=== PATIENT | male | born 1940 | race Hispanic/Latino ===

== ENCOUNTER → 2021-04-07 | Outpatient (CLI) | payer MEDICARE ==
[2021-04-07 10:16] LABS: BILIRUBIN,DIRECT 0.3 mg/dL (0.0-0.3); CREATININE 1.3 mg/dL (0.5-1.5); POTASSIUM 4.9 mmol/L (3.5-5.1); TOTAL PROTEIN, SERUM 7.4 g/dL (6.0-8.3)
== END | disposition home or self-care (01) ==
LOC: LAB 09:28
PROVIDERS: ATTEND Internal Medicine
DX: I10 Essential (primary) hypertension (principal)
CPT/HCPCS: 36415; 80053; 80076

== ENCOUNTER → 2021-06-23 | Outpatient (CLI) | payer MEDICARE, OTHER | END | disposition home or self-care (01) | LOC: SHCH 08:08 | PROVIDERS: ATTEND Internal Medicine | DX: I50.9 Heart failure, unspecified (principal); I34.0 Nonrheumatic mitral (valve) insufficiency; I51.7 Cardiomegaly; I25.10 Atherosclerotic heart disease of native coronary artery without angina pectoris; I25.5 Ischemic cardiomyopathy; E11.22 Type 2 diabetes mellitus with diabetic chronic kidney disease; N18.30 Chronic kidney disease, stage 3 unspecified; Z95.1 Presence of aortocoronary bypass graft | CPT/HCPCS: 93306 ==

== ENCOUNTER 2021-08-18 09:33 | Day surgery (SDC) | payer OTHER ==
[2021-08-13 14:04] LABS: BASOPHILS % (AUTO) 0.8 % (0.0-5.0); EOSINOPHILS % (AUTO) 2.2 % (0.0-8.0); LYMPHOCYTES % (AUTO) 21.5 % (21.0-51.0); MEAN CORPUSCULAR HEMOGLOBIN 31.3 pg (27.0-33.0); MEAN CORPUSCULAR HGB CONC 33.2 g/dL (32.0-36.0); MEAN CORPUSCULAR VOLUME 94.3 fL (79-99); MONOCYTES % (AUTO) 9.4 % (3.0-13.0); NEUTROPHILS % (AUTO) 64.4 % (40.0-77.0); PLATELET COUNT (AUTO) 228 K/uL (130-400); RED BLOOD CELL COUNT(AUTO) 2.97 MIL/uL (4.50-6.20); RED CELL DISTRIBUTION WIDTH 15.1 % (11.0-15.5); WHITE BLOOD COUNT (AUTO) 8.3 K/uL (4.8-10.8)
[2021-08-13 14:14] LABS: CREATININE 1.3 mg/dL (0.5-1.5); POTASSIUM 5.2 mmol/L (3.5-5.1)
[2021-08-13 14:17] LABS: PROTHROMBIN TIME 10.9 SEC (9.6-11.6)
[2021-08-13 14:18] LABS: PARTIAL THROMBOPLASTIN TIME 24.4 SEC (26.3-35.5)
[2021-08-18] VITALS (9 sets, daily range): BP systolic 102–122; BP diastolic 64–80
[~2021-08-18] VITALS: Ht 137.2 cm; Wt 66.0 kg
[~2021-08-18 09:33] MED LIST: ATOR40TA71 PO; CEFAZOLIN SODIUM 1 GM VIAL IVP ONE; CLOP75TA32 PO; EZET10TA48 PO; FURO20TA4 PO; GLIP10TA9 PO; Iron PO; LEVO75CA5 PO; METO-408 PO; SITA1TAB6 PO; SPIR25TA6 PO
[2021-08-18] MEDS ORDERED: 0.9%NACL 1000ML 1,000 ML IV ONE (13:39)
[2021-08-18] MEDS ORDERED: CEFAZOLIN SODIUM 1 GM VIAL ONE (14:32)
[2021-08-18] MEDS ORDERED: IOHEXOL-350 50ML VIAL IV ONE (14:32)
[2021-08-18] MEDS ORDERED: BUPIVACAINE/PF 0.25% 30ML VIAL IJ ONE (14:32)
[2021-08-18] MEDS ORDERED: LIDOCAINE HCL 1% MDV 50ML VIAL ONE (14:33)
[2021-08-18] MEDS ORDERED: MIDAZOLAM HCL 1 MG/ML 2ML VIAL ONE (14:33)
[2021-08-18] MEDS ORDERED: MEPERIDINE-PF 25 MG/ML SYG ONE (14:33)
[2021-08-18] MEDS ORDERED: TRAM50TA4 PO (16:51)
[2021-08-18] MEDS ORDERED: ACETAMINOPHEN WITH CODEINE 1 TAB TAB PO PRN (17:00)
== END 2021-08-18 19:30 | disposition home or self-care (01) ==
LOC: DAH 09:33
PROVIDERS: ATTEND Internal Medicine Cardiovascular Disease
DX: I25.5 Ischemic cardiomyopathy (principal); I11.0 Hypertensive heart disease with heart failure; I50.42 Chronic combined systolic (congestive) and diastolic (congestive) heart failure; E78.5 Hyperlipidemia, unspecified; E11.9 Type 2 diabetes mellitus without complications; I25.10 Atherosclerotic heart disease of native coronary artery without angina pectoris; Z79.01 Long term (current) use of anticoagulants; Z79.899 Other long term (current) drug therapy; Z98.890 Other specified postprocedural states; Z95.1 Presence of aortocoronary bypass graft; Z87.891 Personal history of nicotine dependence; Z79.890 Hormone replacement therapy
CPT/HCPCS: 33249; 36415; 71045; 80048; 82948 ×2; 85025; 85610; 85730; 93005; A4215; A4216; A4221; A4222; A4223 ×3; A4606; A4663; C1721; C1895; C1896; J0690; J2175; J2250; J3490 ×2; J7030; Q9967; 99156; 99157

== ENCOUNTER 2021-08-20 11:26 | Observation (INO) | payer OTHER ==
[~2021-08-20] VITALS: Ht 152.4 cm; Wt 65.3 kg
[~2021-08-20 11:26] MED LIST changes: -CEFAZOLIN SODIUM 1 GM VIAL IVP ONE; +TRAM50TA4 PO
[2021-08-20 11:54] LABS: BASOPHILS % (AUTO) 0.6 % (0.0-5.0); EOSINOPHILS % (AUTO) 3.5 % (0.0-8.0); HEMATOCRIT 27.8 % (42-54); LYMPHOCYTES % (AUTO) 19.3 % (21.0-51.0); MEAN CORPUSCULAR HEMOGLOBIN 31.2 pg (27.0-33.0); MEAN CORPUSCULAR HGB CONC 33.5 g/dL (32.0-36.0); MEAN CORPUSCULAR VOLUME 93.3 fL (79-99); MONOCYTES % (AUTO) 9.9 % (3.0-13.0); NEUTROPHILS % (AUTO) 65.4 % (40.0-77.0); PLATELET COUNT (AUTO) 179 K/uL (130-400); RED BLOOD CELL COUNT(AUTO) 2.98 MIL/uL (4.50-6.20); RED CELL DISTRIBUTION WIDTH 14.9 % (11.0-15.5); WHITE BLOOD COUNT (AUTO) 8.2 K/uL (4.8-10.8)
[2021-08-20 12:07] LABS: APPEARANCE,URINE Clear (CLEAR); BILIRUBIN,URINE Negative (NEGATIVE); COLOR,URINE Yellow (YELLOW); GLUCOSE, URINE (UA) 500 mg/dL (NEGATIVE); KETONES,URINE Negative (NEGATIVE); LEUKOCYTE ESTERASE ,URINE Negative (NEGATIVE); NITRATE,URINE Negative (NEGATIVE); OCCULT BLOOD,URINE Negative (NEGATIVE); PH,URINE 5.5 (5.0-8.0); PROTEIN,URINE Negative (NEGATIVE); UROBILINOGEN,URINE 0.2 mg/dL (0.2-1.0)
[2021-08-20 12:14] LABS: B-TYPE NATRIURETIC PEPTIDE 299 pg/mL (0-100)
[2021-08-20 12:18] LABS: ALBUMIN 3.7 g/dL (3.5-5.0); BILIRUBIN,TOTAL 0.4 mg/dL (0.2-1.0); CREATININE 1.4 mg/dL (0.5-1.5); MAGNESIUM 1.4 mg/dL (1.80-2.40); POTASSIUM 4.1 mmol/L (3.5-5.1); TOTAL PROTEIN, SERUM 7.5 g/dL (6.0-8.3)
[2021-08-20 12:19] LABS: BACTERIA,URINE None Seen /HPF (None Seen); HYALINE CASTS, URINE 0-1 /LPF (0-1 /LPF); MUCUS,URINE Rare LPF (None Seen); RBC,URINE None Seen /HPF (0-1); SQUAMOUS EPITHELIAL CELL,UR 0-2 /HPF (0-2); WBC,URINE 0-1 /HPF (0-1)
[2021-08-20 12:21] LABS: INR 1.02 (0.85-1.15); PROTHROMBIN TIME 11.1 SEC (9.6-11.6)
[2021-08-20 12:23] LABS: PARTIAL THROMBOPLASTIN TIME 26.2 SEC (26.3-35.5)
[2021-08-20] MEDS ORDERED: IOHEXOL-350 75 ML VIAL IV ONE (13:52)
[2021-08-20 16:36] VITALS: BP 116/68
[2021-08-20] MEDS ORDERED: MAGNESIUM OXIDE 400 MG TABLET PO SCH (17:30)
== END 2021-08-20 18:58 | disposition home or self-care (01) ==
LOC: EDH 11:26 → EDHIP 16:00
PROVIDERS: ADMIT Internal Medicine; ATTEND Internal Medicine
DX: R55 Syncope and collapse (principal); I25.10 Atherosclerotic heart disease of native coronary artery without angina pectoris; E11.9 Type 2 diabetes mellitus without complications; R07.89 Other chest pain; I25.2 Old myocardial infarction; I50.22 Chronic systolic (congestive) heart failure; Z86.711 Personal history of pulmonary embolism; Z95.810 Presence of automatic (implantable) cardiac defibrillator; Z79.899 Other long term (current) drug therapy
CPT/HCPCS: 36415; 71045; 71275; 80053; 80061; 81001; 82550; 83735; 83874; 83880; 84484; 85025; 85378; 85610; 85730; 93005 ×2; 93306; 99291; G0378 ×3; Q9967

== ENCOUNTER 2022-07-15 14:47 | Observation (INO) | payer OTHER ==
[~2022-07-15] VITALS: Ht 165.1 cm; Wt 64.9 kg
[2022-07-15 15:32] LABS: EOSINOPHILS % (AUTO) 3.5 % (0.0-8.0); HEMATOCRIT 30.7 % (42-54); LYMPHOCYTES % (AUTO) 22.6 % (21.0-51.0); MEAN CORPUSCULAR HEMOGLOBIN 29.8 pg (27.0-33.0); MEAN CORPUSCULAR HGB CONC 33.6 g/dL (32.0-36.0); MEAN CORPUSCULAR VOLUME 88.7 fL (79-99); MONOCYTES % (AUTO) 11.6 % (3.0-13.0); NEUTROPHILS % (AUTO) 59.9 % (40.0-77.0); PLATELET COUNT (AUTO) 171 K/uL (130-400); RED BLOOD CELL COUNT(AUTO) 3.46 MIL/uL (4.50-6.20); RED CELL DISTRIBUTION WIDTH 14.3 % (11.0-15.5); WHITE BLOOD COUNT (AUTO) 8.7 K/uL (4.8-10.8)
[2022-07-15 15:46] LABS: CREATININE 1.4 mg/dL (0.5-1.5); POTASSIUM 4.4 mmol/L (3.5-5.1)
[2022-07-15 15:54] LABS: ALBUMIN 4.1 g/dL (3.5-5.0); TOTAL PROTEIN, SERUM 7.2 g/dL (6.0-8.3)
[2022-07-15] MEDS ORDERED: ASPIRIN 325MG TAB PO ONE (17:30)
[2022-07-15] MEDS ORDERED: METF-446 PO (17:56)
[2022-07-15] MEDS ORDERED: GABA-529 PO (17:56)
[2022-07-15] MEDS ORDERED: TRAMADOL HCL 50 MG TABLET PO PRN (19:00)
[2022-07-15] MEDS: GLIPIZIDE 5 MG TABLET PO SCH (20:45)
[2022-07-15] MEDS ORDERED: ATORVASTATIN 40 MG TABLET PO SCH (21:00)
[2022-07-16] VITALS: BP 144/91
[2022-07-16 04:00] VITALS: BP 125/80
[2022-07-16] MEDS ORDERED: LEVOTHYROXINE 75 MCG TABLET PO SCH (06:30)
[2022-07-16 07:30] VITALS: BP 119/70
[2022-07-16] MEDS ORDERED: METFORMIN HCL 500 MG TABLET PO SCH (08:00)
[2022-07-16] MEDS ORDERED: CLOPIDOGREL 75MG TAB PO SCH (09:00)
[2022-07-16] MEDS ORDERED: ENOXAPARIN SODIUM 30 MG/0.3 ML SQ SCH (09:00)
[2022-07-16] MEDS ORDERED: GABAPENTIN 100 MG CAPSULE PO SCH (09:00)
[2022-07-16] MEDS ORDERED: METOPROLOL SUCCINATE 25 MG TAB.SR.24H PO SCH (09:00)
[2022-07-16] MEDS ORDERED: EZETIMIBE 10 MG TAB PO SCH (09:00)
[2022-07-16] MEDS ORDERED: SPIRONOLACTONE 25 MG TAB PO SCH (09:00)
[2022-07-16] MEDS ORDERED: ASPIRIN 81MG CHEW TAB PO SCH (09:00)
[2022-07-16] MEDS: GLIPIZIDE 5 MG TABLET PO SCH (09:00)
[2022-07-16] MEDS ORDERED: FUROSEMIDE 20 MG TABLET PO SCH (09:00)
[2022-07-16 11:30] VITALS: BP 123/67
== END 2022-07-16 15:42 | disposition home or self-care (01) ==
LOC: EDH 14:47 → EDHIP 17:30 → 4BH 23:18
PROVIDERS: ADMIT Family Medicine; ATTEND Family Medicine
DX: R07.89 Other chest pain (principal); Z20.822 Contact with and (suspected) exposure to COVID-19; R06.02 Shortness of breath; I12.9 Hypertensive chronic kidney disease with stage 1 through stage 4 chronic kidney disease, or unspecified chronic kidney disease; E11.22 Type 2 diabetes mellitus with diabetic chronic kidney disease; N18.9 Chronic kidney disease, unspecified; E78.5 Hyperlipidemia, unspecified; E03.9 Hypothyroidism, unspecified; I25.10 Atherosclerotic heart disease of native coronary artery without angina pectoris; I25.5 Ischemic cardiomyopathy; I44.0 Atrioventricular block, first degree; Z79.899 Other long term (current) drug therapy; Z95.1 Presence of aortocoronary bypass graft; Z95.5 Presence of coronary angioplasty implant and graft; Z95.810 Presence of automatic (implantable) cardiac defibrillator
CPT/HCPCS: 99285; 82550 ×3; 83874 ×3; 84484 ×4; 80053; 83880; 85025; 87804 ×2; 82948; 36415 ×2; 87635; 71045; 93005; 96372; 93306; 93356; G0378 ×21; C9803; J1650

== ENCOUNTER → 2023-08-07 | Outpatient (CLI) | payer OTHER ==
[~2023-08-07] MED LIST changes: +GABA-529 PO; -Iron PO; +METF-446 PO; -SITA1TAB6 PO
[2023-08-07 12:38] LABS: ALBUMIN 3.7 g/dL (3.5-5.0); BILIRUBIN,TOTAL 0.3 mg/dL (0.2-1.0); CREATININE 1.4 mg/dL (0.5-1.3); MAGNESIUM 1.3 mg/dL (1.80-2.40); POTASSIUM 4.7 mmol/L (3.5-5.1); TOTAL PROTEIN, SERUM 7.2 g/dL (6.0-8.3)
== END | disposition home or self-care (01) ==
LOC: LAB 10:03
PROVIDERS: ATTEND Internal Medicine Cardiovascular Disease
DX: I25.5 Ischemic cardiomyopathy (principal); I47.20 Ventricular tachycardia, unspecified
CPT/HCPCS: 36415; 80053; 83735

== ENCOUNTER → 2023-08-24 | Outpatient (CLI) | payer OTHER ==
[2023-08-24 16:52] LABS: ALBUMIN 3.9 g/dL (3.5-5.0); BILIRUBIN,TOTAL 0.3 mg/dL (0.2-1.0); CREATININE 1.8 mg/dL (0.5-1.3); MAGNESIUM 1.9 mg/dL (1.80-2.40); TOTAL PROTEIN, SERUM 7.1 g/dL (6.0-8.3)
== END | disposition home or self-care (01) ==
LOC: LAB 14:16
PROVIDERS: ATTEND Internal Medicine Cardiovascular Disease
DX: I25.5 Ischemic cardiomyopathy (principal); I47.20 Ventricular tachycardia, unspecified
CPT/HCPCS: 36415; 80053; 83735

== ENCOUNTER → 2023-10-12 | Outpatient (CLI) | payer OTHER ==
[2023-10-12 16:35] LABS: CREATININE 1.5 mg/dL (0.5-1.3); MAGNESIUM 1.5 mg/dL (1.80-2.40); POTASSIUM 4.7 mmol/L (3.5-5.1)
== END | disposition home or self-care (01) ==
LOC: LAB 13:15
PROVIDERS: ATTEND Internal Medicine Cardiovascular Disease
DX: I50.22 Chronic systolic (congestive) heart failure (principal)
CPT/HCPCS: 36415; 80048; 83735

== ENCOUNTER → 2024-01-30 | Outpatient (CLI) | payer OTHER ==
[~2024-01-30] MED LIST changes: +GLIP10TA16 PO; -GLIP10TA9 PO
== END | disposition home or self-care (01) ==
LOC: SHCH 09:52
PROVIDERS: ATTEND Internal Medicine Cardiovascular Disease
DX: I25.10 Atherosclerotic heart disease of native coronary artery without angina pectoris (principal); R01.1 Cardiac murmur, unspecified
CPT/HCPCS: 93306

== ENCOUNTER → 2024-05-17 | Outpatient (CLI) | payer OTHER ==
--- NOTE | 2024-05-17 16:03 | HMCIMG ---
MR SPINAL CANAL, LUMBAR WO CON HISTORY: Pain COMPARISON: None TECHNIQUE: MRI of the lumbar spine was performed utilizing multiple pulse sequences in axial , coronal and sagittal plane. Patient was not given contrast through intravenous route. FINDINGS: No abnormal signal intensity is seen of the visualized bony structure. No loss of vertebral height is seen. There is straightening of normal lumbar curvature which may be related to muscle spasm or positioning. Degenerative disc signals are present at L4-5 and L5-S1 levels. Visualized distal conus is unremarkable. At the L2-3 level, there is spondylotic disc with annular disc bulge and bilateral ligamentum flavum hypertrophy causing anterior thecal sac compression with bilateral lateral recess stenosis and bilateral neural foraminal stenosis. The thecal sac measures approximately 5 mm in its anterior posterior dimension. At the L3-4 level, there is spondylotic disc with annular disc bulge and bilateral ligamentum flavum hypertrophy causing anterior thecal sac compression with bilateral lateral recess stenosis and bilateral neural foraminal stenosis. The thecal sac measures approximately 4.62 mm in its anterior posterior dimension. At the L4-5 level, there is spondylotic disc with annular disc bulge and bilateral ligamentum flavum hypertrophy causing anterior thecal sac compression with bilateral lateral recess stenosis and bilateral neural foraminal stenosis. The thecal sac measures approximately 3.9 mm in its anterior posterior dimension. 3.9 mm in its anterior posterior dimension. At the L5-S1 level, there is spondylotic disc with central disc protrusion/herniation causing anterior thecal sac compression with bilateral lateral recess stenosis and bilateral neural foraminal stenosis. The thecal sac measures approximately 7 mm in its anterior posterior dimension. IMPRESSION: 1. 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
== END | disposition home or self-care (01) ==
LOC: RAH 13:24
PROVIDERS: ATTEND Internal Medicine
DX: M47.816 Spondylosis without myelopathy or radiculopathy, lumbar region (principal); M51.369 Other intervertebral disc degeneration, lumbar region without mention of lumbar back pain or lower extremity pain; M48.061 Spinal stenosis, lumbar region without neurogenic claudication; M43.8X6 Other specified deforming dorsopathies, lumbar region; M47.817 Spondylosis without myelopathy or radiculopathy, lumbosacral region
CPT/HCPCS: 72148

== ENCOUNTER → 2024-09-18 | Outpatient (CLI) | payer OTHER ==
[~2024-09-18] MED LIST changes: -LEVO75CA5 PO; +LEVO75CA6 PO
--- NOTE | 2024-09-18 15:34 | HMCIMG ---
CT HEAD/BRAIN W/O CONTRAST HISTORY: Repeat of false COMPARISON: None TECHNIQUE: Multiple sequential axial images of the head were obtained from the base of the skull through vertex. Patient was not given contrast through intravenous route. FINDINGS: The ventricles and extraventricular CSF spaces are dilated consistent with cerebral atrophy. Nonspecific white matter changes seen. There is no midline shift, mass effect or herniation. No acute intracranial bleed is seen. Visualized portion of the paranasal sinuses are grossly within normal limits. IMPRESSION: 1. No acute intracranial bleed is seen. 2. Atrophy with white matter changes. CT was performed with one or more following dose reduction techniques: automated exposure control, adjustment of the mA and kv according to patient's size, or use of a iterative reconstruction technique.
== END ==
LOC: RAH 13:33
PROVIDERS: ATTEND Neurological Surgery
DX: M62.81 Muscle weakness (generalized) (principal); R26.89 Other abnormalities of gait and mobility; R29.6 Repeated falls; G99.2 Myelopathy in diseases classified elsewhere
CPT/HCPCS: 70450

== ENCOUNTER 2025-03-29 11:47 | Inpatient (IN) | payer OTHER ==
[~2025-03-29] VITALS: Ht 165.1 cm; Wt 68.8 kg
--- NOTE | 2025-03-29 12:03 | NUR ---
PT JUST NOW BEING PLACED IN MY ED BED 11
--- NOTE | 2025-03-29 12:09 | EKG ---
[facility] Test Date: 2025-03-29 Test Time: 12:00:34 Pat Name: FLAVIA PIERRE Department: ED Room: 309 Gender: M [employer]: [id number] : 1940 Requested By: REGINALDO HADDAD Order Number: [id number] Reading MD: Diamond Romano Measurements Intervals [place] Rate: 61 P: -13 ID: [id number] QRS: 29 QRSD: 93 T: 93 QT: 410 QTc: 413 Interpretive Statements Atrial-paced complexes Consider anterior infarct Compared to ECG 07/15/2022 14:45:41 Sinus rhythm no longer present ST (T wave) deviation no longer present Myocardial infarct finding still present Electronically Signed On 04-01-2025 19:55:27 MEDICAL TECHNOLOGIST by Diamond Romano Please click the below link to view image of tracing.
[2025-03-29] MEDS: 0.9%NACL 1000ML 1,000 ML IV ONE (12:36)
[2025-03-29 12:41] LABS: IMMATURE GRANULOCYTE ABSOLUTE 0.22 K/uL (0-1); NUCLEATED RED BLOOD CELLS 0.0 % (0.0-0.19); PLATELET COUNT (AUTO) 178 K/uL (130-400); RED BLOOD CELL COUNT(AUTO) 3.15 MIL/uL (4.50-6.20); RED CELL DISTRIBUTION WIDTH 15.4 % (11.0-15.5); WHITE BLOOD COUNT (AUTO) 9.8 K/uL (4.8-10.8)
[2025-03-29 12:51] LABS: CREATININE 2.1 mg/dL (0.5-1.3); GLOMERULAR FILTR. RATE CALC 31.0 mL/min (>90); GLUCOSE,RANDOM 299.0 mg/dL (70-105); SODIUM SERUM 134.0 mmol/L (136-145); UREA NITROGEN, BLOOD 26.0 mg/dL (7-18)
--- NOTE | 2025-03-29 13:18 | HMCIMG ---
EXAM: CR Chest, 1 View. CLINICAL HISTORY: vertigo COMPARISON: None provided. FINDINGS: LUNGS: Ill-defined density within the right lower lung may reflect an infectious and/inflammatory process; however, consider CT imaging for further evaluation. PLEURAL SPACES: No pleural effusion or pneumothorax. MEDIASTINUM: The cardiomediastinal silhouette is within normal limits. AICD leads are in satisfactory positions. BONES: No acute osseous abnormality. IMPRESSION: 1. Ill-defined density in the right lower lung, possibly representing an infectious or inflammatory process. Consider CT imaging for further evaluation. 2. AICD leads in satisfactory positions. /[place]
--- NOTE | 2025-03-29 13:34 | ERN ---
General Chief Complaint: Dizzy/Light Headed Stated Complaint: DIZZINESS Time Seen by MD: 11:56 Source: patient History of Present Illness Initial Comments PATIENT IS A AN 84-YEAR-OLD GENTLEMAN COMING IN WEAKNESS, LONG WITH THE WEAKNESS PATIENT HAS BEEN PRESENTING WITH A MILD DIZZINESS. Allergies: Coded Allergies: No Known Allergies (Verified Allergy, Unknown, 07/30/21) Home Meds Active Scripts Tramadol Hcl (Tramadol HCl) 50 Mg Tablet, 50 MG PO Q6HPRN PRN for pain, #30 TAB 0 Refills Prov:JOE COPELAND MD 08/18/21 Reported Medications Metformin HCl (Metformin HCl) 1,000 Mg Tablet, 1000 MG PO DAILYBKFST, TAB 07/15/22 Gabapentin (Gabapentin) 100 Mg Capsule, 100 MG PO DAILY, CAP 07/15/22 Levothyroxine Sodium (Levothyroxine) 75 Mcg Capsule, 75 MCG PO DAILY, CAP 08/03/21 Atorvastatin Calcium (Atorvastatin Calcium) 40 Mg Tablet, 40 MG PO HS, TAB 08/03/21 Glipizide (Glipizide) 10 Mg Tablet, 10 MG PO BID, TAB 08/03/21 Ezetimibe (Ezetimibe) 10 Mg Tablet, 10 MG PO DAILY, TAB 08/03/21 Spironolactone (Spironolactone) 25 Mg Tablet, 25 MG PO DAILY, TAB 08/03/21 Clopidogrel Bisulfate (Clopidogrel) 75 Mg Tablet, 75 MG PO DAILY, TAB 08/03/21 Furosemide (Furosemide) 20 Mg Tablet, 20 MG PO DAILY, TAB 08/03/21 Metoprolol Succinate (Metoprolol Succinate) 25 Mg Tab.er.24h, 25 MG PO DAILY, TAB 08/03/21 Past Medical History Past Medical History: CAD, Diabetes-Type II, High Cholesterol, Heart Disease, Hypertension, Other Medical History Other: THYROID Past Surgical History: Cholecystectomy, CABG, Pacer/AICD Surgical History Other: PROSTATE Social History Social History: Negative ROS Dictation CONSTITUTIONAL: NO CHILLS, NO FEVER, WEAKNESS, NO DIAPHORESIS, NO MALAISE. HEAD/FACE: NO SIGNS OF TRAUMA. EENT: NO EYE PAIN, NO BLURRED VISION, NO TEARING, NO DOUBLE VISION, NO EAR PAIN, NO EAR DISCHARGE, NO NOSE PAIN, NO NASAL CONGESTION, NO THROAT PAIN, NO THROAT SWELLING, NO MOUTH PAIN. RESPIRATORY: NO COUGH, NO ORTHOPNEA, NO SOB, NO STRIDOR, NO WHEEZING. CARDIOVASCULAR: NO CHEST PAIN, NO EDEMA, NO PALPITATIONS, NO SYNCOPE. GASTROINTESTINAL/ABDOMINAL: NO ABDOMINAL PAIN, NO CONSTIPATION, NO DIARRHEA, NO NAUSEA, NO VOMITING. GENITOURINARY: NO ABNORMAL DISCHARGE, NO DYSURIA, NO FREQUENT URINATION, NO HEMATURIA. NO COMPLAINTS OF PAIN IN THE GENITALS. MUSCULOSKELETAL: NO BACK PAIN, NO GOUT, NO JOINT PAIN, NO JOINT SWELLING, NO MUSCLE PAIN, NO MUSCLE STIFFNESS, NO NECK PAIN. INTEGUMENTARY: NO CHANGE IN COLOR, NO CHANGE IN HAIR/NAILS, NO DRYNESS, NO LESION, NO LUMPS, NO RASH. NEUROLOGICAL/PSYCH: NO ANXIETY, NOT DEPRESSED, NO EMOTIONAL PROBLEM, NO HEADACHE, NO NUMBNESS, NO PRE-EXISTING DEFICIT, NO HISTORY OF SEIZURES, NO TREMORS, NO WEAKNESS. HEMATOLOGIC/LYMPHATIC: NOT ANEMIC, NO HISTORY OF BLOOD CLOTS, NO APPARENT BLEEDING, NO BRUISING, GLANDS NOT SWOLLEN. ALL SYSTEMS NEGATIVE, EXCEPT NOTED. Physical Exam Physical Exam Dictation VITAL SIGNS: REVIEWED. GENERAL APPEARANCE: ALERT, ORIENTED X3, NO ACUTE DISTRESS, OBESE. HEAD AND FACE: NON-TRAUMATIC. EYES: PERRL, PINK CONJUNCTIVAS, EYELID NO TRAUMA, ANTERIOR CHAMBER CLEAR. EARS: PINNAS INTACT AND NO SIGNS OF TRAUMA OR ERYTHEMA. EAR CANALS CERUMEN IMPACTION. TMS NO ERYTHEMA. NOSE: NO DISCHARGE, NO BLEEDING. OROPHARYNX: MOUTH NORMAL, TEETH NO CARIES, TONGUE PINK. PHARYNX CLEAR, NO ERYTHEMA. TONSILS NO EXUDATES, NO ABSCESSES NOTED. MUCOUS MEMBRANE MOIST. NECK: SUPPLE, NON-TENDER, NO THYROMEGALY, NO MASSES, NO JVD, NO BRUITS. BREAST: DEFERRED. CHEST: NO TENDERNESS, NO CREPITUS, NO PARADOXICAL MOVEMENT, NO RETRACTIONS. LUNGS: CLEAR, WELL-VENTILATED, SYMMETRIC, NO RALES, NO WHEEZING, NO RHONCHI, NO STRIDOR, GOOD BREATH SOUNDS BILATERALLY. HEART: REGULAR RATE, REGULAR RHYTHM, NO MURMUR, NO GALLOPS. VASCULAR: NO PERIPHERAL EDEMA. ABDOMEN: SOFT, POSITIVE BOWEL SOUNDS, NONDISTENDED, NO GUARDING, NONTENDER, NO REBOUND, NO MASSES NO HEPATOMEGALY, NO SPLENOMEGALY, NO PEREZ'S SIGN, NO HE RNIAS. RECTAL: DEFERRED. GENITAL: DEFERRED. NEUROLOGICAL: NORMAL SPEECH, GROSS MOTOR FUNCTION INTACT, GROSS SENSORY FUNCTIO N INTACT. MUSCULOSKELETAL: NECK NONTENDER, FULL RANGE OF MOTION, BACK NONTENDER, FULL RANGE OF MOTION. EXTREMITIES: NONTENDER, FULL RANGE OF MOTION. SKIN: COLOR PINK, DRY, NO TURGOR, NO RASH, NO LACERATIONS, NO ABRASIONS, NO CONTUSIONS. LYMPHATICS: DEFERRED. Results Laboratory and Microbiology Lab and Micro Result Laboratory Tests Test 03/29/25 12:37 03/29/25 14:49 White Blood Count 9.8 K/uL (4.8-10.8) Red Blood Count 3.15 MIL/uL (4.50-6.20) L Hemoglobin 10.5 g/dL (14.0-18.0) L Hematocrit 30.4 % (42-54) L Mean Corpuscular Volume 96.5 fL (79-99) Mean Corpuscular Hemoglobin 33.3 pg (27.0-33.0) H Mean Corpuscular Hemoglobin Concent 34.5 g/dL (32.0-36.0) Red Cell Distribution Width 15.4 % (11.0-15.5) Platelet Count 178 K/uL (130-400) Mean Platelet Volume 8.6 fL (7.5-10.5) Immature Granulocyte % (Auto) 2.2 % (0-1) H Neutrophils (%) (Auto) 66.1 % (40.0-77.0) Lymphocytes (%) (Auto) 19.2 % (21.0-51.0) L Monocytes (%) (Auto) 9.0 % (3.0-13.0) Eosinophils (%) (Auto) 2.7 % (0.0-8.0) Basophils (%) (Auto) 0.8 % (0.0-5.0) Neutrophils # (Auto) 6.5 K/uL (1.8-7.7) Lymphocytes # (Auto) 1.9 K/uL (1.0-4.8) Monocytes # (Auto) 0.9 K/uL (0.1-1.0) Eosinophils # (Auto) 0.27 K/uL (0.00-0.70) Basophils # (Auto) 0.08 K/uL (0.00-0.20) Absolute Immature Granulocyte (auto 0.22 K/uL (0-1) Nucleated Red Blood Cells 0.0 % (0.0-0.19) Sodium Level 134 mmol/L (136-145) L Potassium Level 4.2 mmol/L (3.5-5.1) Chloride Level 98 mmol/L (101-111) L Carbon Dioxide Level 28 mmol/L (21-32) Blood Urea Nitrogen 26 mg/dL (7-18) H Creatinine 2.1 mg/dL (0.5-1.3) H Glomerular Filtration Rate Calc 31 mL/min (>90) Random Glucose 299 mg/dL (70-105) H Total Calcium 8.8 mg/dL (8.5-10.1) Troponin I High Sensitivity 14 ng/L (4-75) Urine Color LIGHT-YELLOW (YELLOW) Urine Appearance CLEAR (CLEAR) Urine pH 5.0 (5.0-8.0) Urine Specific [place] 1.007 (1.001-1.031) Urine Protein NEGATIVE mg/dL (NEGATIVE) Urine Glucose (UA) TRACE mg/dL (NEGATIVE) H Urine Ketones NEGATIVE mg/dL (NEGATIVE) Urine Occult Blood NEGATIVE (NEGATIVE) Urine Nitrate NEGATIVE (NEGATIVE) Urine Bilirubin NEGATIVE mg/dL (NEGATIVE) Urine Urobilinogen 0.2 mg/dL (0.2-1.0) Urine Leukocyte Esterase NEGATIVE [place]/uL Labs Reviewed?: Yes EKG/XRAY/US/CT/MRI EKG Comment 03/29/2025 TIME 12:00 P.M. VENTRICULAR RATE [address] WAVE ELEVATION OR DEPRESSION X-RAY Comment IMAGING REPORT Signed PATIENT: FLAVIA PIERRE MR#: [id number] : 1940 SEX: M AGE: 84 LOCATION: [facility] ORDER 56 STATUS: REG REPORT#: [id number] SERVICE 115 REASON: vertigo ORDERING PHYSICIAN: REGINALDO HADDAD MD PROCEDURE: CXR1VW - CHEST 1VW EXAM: CR Chest, 1 View. CLINICAL HISTORY: vertigo COMPARISON: None provided. FINDINGS: LUNGS: Ill-defined density within the right lower lung may reflect an infectious and/inflammatory process; however, consider CT imaging for further evaluation. PLEURAL SPACES: No pleural effusion or pneumothorax. MEDIASTINUM: The cardiomediastinal silhouette is within normal limits. AICD leads are in satisfactory positions. BONES: No acute osseous abnormality. IMPRESSION: 1. Ill-defined density in the right lower lung, possibly representing an infectious or inflammatory process. Consider CT imaging for further evaluation. 2. AICD leads in satisfactory positions. /[place] DICTATED BY: TYREE BOO Jr., MD DATE: 03/29/251416 ELECTRONICALLY SIGNED BY: TYREE BOO Jr., MD DATE: 03/29/251416 [facility] MDM: DIFFERENTIAL DIAGNOSIS: COLUMBA, RIGHT LUNG INFILTRATE, RIGHT LUNG MASS, DEHYDRATION, RATIONALE: TESTS CONSIDERED AND ORDERED SECONDARY TO SHARED DECISION MAKING INCLUDE: LABS, ECG AND RADIOLOGY PREVIOUS OUTSIDE RECORDS REVIEWED: OLD ER VISITS. RISK OF COMPLICATION AND/OR MORBIDITY OR MORTALITY OF PATIENT MANAGEMENT: NONE MEDICATIONS-PER MEDICATION RECONCILIATION NEED FOR HOSPITALIZATION: PATIENT DOES MEET CRITERIA FOR HOSPITALIZATION. NEED FOR EMERGENCY MAJOR/MINOR SURGERY: NO THERE ARE NO SOCIAL CONCERNS WITH THIS PATIENT. PRESCRIPTION DRUG MANAGEMENT PRESCRIPTIONS WILL INCLUDE SYMPTOMATIC CARE PATIENT'S PRIOR EXTERNAL MEDICAL RECORDS FROM OTHER ER VISITS WERE REVIEWED BY ME INDICATED. PRIOR TESTING AND RESULTS FROM PREVIOUS VISITS WERE REVIEWED. PRIOR TESTS WERE TAKEN INTO ACCOUNT WITH MEDICAL DECISION MAKING AND RESOURCE UTILIZATION, INDEPENDENT HISTORIAN/HISTORIANS WERE USED TO OBTAIN COMPLETE MEDICAL HISTORY. I INDEPENDENTLY INTERPRETED THE TEST THAT WERE PERFORMED, RESULTS WERE REVIEWED BY ME AND CONSIDERED FINDINGS ON RADIOLOGY IF ORDERED. MEDICAL MANAGEMENT AND EXAMINATION INTERPRETATION DISCUSSIONS WERE HAD BY ME WITH OTHER QUALIFIED HEALTHCARE PROFESSIONALS INDICATED FOR THE PATIENT'S CARE. PATIENT WILL BE ADMITTED UNDER THE CARE OF ED Course Orders Procedure Category Date Status Time Cbc With Differential LAB 03/29/25 Complete 11:56 Chest 1vw RAD 03/29/25 Resulted 11:56 12 Lead Ekg Tracing- EKG 03/29/25 Complete Technical 11:56 0.9%Nacl 1000ml (Ns PHA 03/29/25 Complete 1000ml) 12:00 Troponin I High LAB 03/29/25 Complete Sensitivity 11:56 Urinalysis Profile LAB 03/29/25 In Process 11:56 Basic Metabolic Panel LAB 03/29/25 Complete 11:56 Cerv Spine 2-3vws RAD 03/29/25 Taken 14:38 Current Medications Medications (Trade) Dose Ordered Sig/Berenice Route PRN Reason Start Time Stop Time Status Last Admin Dose Admin Sodium Chloride 1,000 ml @ 0 mls/hr ONCE ONCE IV 03/29/25 12:00 03/29/25 12:01 DC 03/29/25 12:36 Vital Signs Date Time Temp Pulse Resp B/P (MAP) Pulse Ox O2 Delivery O2 Flow Rate FiO2 03/29/25 15:11 97.9 60 14 101/59 100 Room Air* 0 21 03/29/25 11:52 97.2 66 20 111/57 99 Room Air DX & DISP Disposition: Inpatient Decision to Admit Time: 15:26 Departure Impression: Primary Impression: COLUMBA (acute kidney injury) Additional Impressions: Right lower lobe lung mass, Right pulmonary infiltrate on CXR Condition: Stable Referrals: IDALIA SCOTT MD (PCP) REGINALDO HADDAD MD Mar 29, 2025 13:34
[2025-03-29 15:07] LABS: APPEARANCE,URINE CLEAR (CLEAR); GLUCOSE, URINE (UA) TRACE mg/dL (NEGATIVE); LEUKOCYTE ESTERASE ,URINE NEGATIVE Leu/uL (NEGATIVE); NITRATE,URINE NEGATIVE (NEGATIVE); OCCULT BLOOD,URINE NEGATIVE (NEGATIVE)
[2025-03-29 15:11] LABS: ADD UA MICROSCOPIC YES
[2025-03-29] MEDS ORDERED: VANCOMYCIN PROTOCOL PER PHARMACY IV SCH (15:30)
--- NOTE | 2025-03-29 15:51 | HMCIMG ---
CLINICAL INFORMATION PAIN COMPARISON None. TECHNIQUE AP, lateral, and odontoid view of the cervical spine FINDINGS Vertebral Body Height: Normal. Alignment: Straightening of the normal curvature. Disc spaces: Mild to moderate multilevel disc height loss with endplate osteophytes, most pronounced at C5-C6 and C6-C7. Posterior Elements: Normal. Soft Tissues: Atherosclerotic vascular calcification. Other: None. IMPRESSION Mild to moderate cervical spondylosis, most pronounced at C5-C6 and C6-C7. There is concern for acute fracture, consider CT, which is more sensitive. /[place]
--- NOTE | 2025-03-29 16:04 | NUR ---
BED ASSIGNMENT BED 309 JUST ASSIGNED BY RUBY LANDIN RN. XTENSION [id number] ANJU NURSE
--- NOTE | 2025-03-29 16:42 | HMCIMG ---
EXAM: Chest CT without contrast. HISTORY: Lung mass TECHNIQUE: Axial images through the chest were obtained without intravenous contrast. Coronal and sagittal reformats were performed. MIP images were obtained. This study was performed to obtain a diagnostic image quality scan with patient dose as low as reasonably achievable. COMPARISON: None. FINDINGS: LUNGS: 4 cm masslike opacity in the right middle lobe lateral segment.. PULMONARY NODULES OR MASSES: None. TRACHEA AND BRONCHI: Airway is patent to the level of the segmental bronchi. HEART AND PERICARDIUM: Changes of prior CABG. Coronary artery calcifications and stents. Cardiac pacemaker in place.. AORTA: Normal caliber aorta. ADENOPATHY: None. LIMITED VIEWS OF THE ABDOMEN: Prior cholecystectomy. Atherosclerotic vascular calcifications. OSSEOUS STRUCTURES: Prior sternotomy. Chronic compression deformity at L1 with 20% height loss. OVERLYING SOFT TISSUES: Left chest wall cardiac pacemaker. THYROID: The thyroid is unremarkable. IMPRESSION: 4 cm masslike opacity in the right middle lobe lateral segment. Findings may reflect focal pneumonia or underlying malignancy. /[place]
--- NOTE | 2025-03-29 16:54 | NUR ---
FAILED ATTEMPT TO CALL REPORT. NURSE WAS IN PT ROOM AND STATED SHE WOULD CALL ME RIGHT BACK.
--- NOTE | 2025-03-29 17:16 | NUR ---
MED RECONCILATION COMPLETE
[2025-03-29] MEDS: 0.9%NACL 1000ML 1,000 ML IV SCH (17:25)
--- NOTE | 2025-03-29 17:43 | NUR ---
ORTHOSTATIC VITAL SIGNS LYING DOWN 57 118/47 SITTING DOWN 62 113/57 STANDING UP 64 103/55
[2025-03-29 18:04] VITALS: O2SAT 100
[2025-03-29] MEDS: VANCOMYCIN 1.5 GM/250 ML BAG 250 ML IV ONE (18:56)
[2025-03-29 20:00] VITALS: BP 127/68; PULSE 58; RESP 18; TEMP 97.5; O2SAT 100
[2025-03-29] MEDS: ZOSYN 3.375GM +NS 50ML IVPB SCH (20:38)
[2025-03-29] MEDS: DRONEDARONE HYDROCHLORIDE 400 MG TABLET PO SCH (20:39)
[2025-03-29] MEDS: SACUBITRIL/VALSARTAN 1 EACH TABLET PO SCH (20:39)
[2025-03-30] VITALS (8 sets, daily range): BP systolic 107–124; BP diastolic 60–70; PULSE 60–67; RESP 18; TEMP 97.2–98.1; O2SAT 0–100
[2025-03-30 05:05] LABS: NUCLEATED RED BLOOD CELLS 0.0 % (0.0-0.19); PLATELET COUNT (AUTO) 155.0 K/uL (130-400); RED BLOOD CELL COUNT(AUTO) 2.86 MIL/uL (4.50-6.20); RED CELL DISTRIBUTION WIDTH 15.5 % (11.0-15.5); WHITE BLOOD COUNT (AUTO) 8.5 K/uL (4.8-10.8)
[2025-03-30 05:27] LABS: CREATININE 1.7 mg/dL (0.5-1.3); GLOMERULAR FILTR. RATE CALC 40.0 mL/min (>90); GLUCOSE,RANDOM 199.0 mg/dL (70-105); SODIUM SERUM 136.0 mmol/L (136-145); UREA NITROGEN, BLOOD 23.0 mg/dL (7-18)
[2025-03-30] MEDS: MAGNESIUM 2GM PREMIX 50ML 50 ML IV ONE (06:58)
--- NOTE | 2025-03-30 09:21 | CONS ---
[facility] CONSULTATION NOTE Date Patient Seen: Mar 30, 2025 Time of Visit: 09:20 Supervising Physician: Dr. Lynn Reason for Consultation: CAP vs RML Mass PROBLEM LIST: Community-acquired pneumonia Right middle lobe consolidation, infiltrate versus neoplasm General body weakness Dizziness Diabetes mellitus type 2 Hypothyroidism Hypercholesteremia Hypertension CHF History of CABG AICD HPI: Patient is an 84-year-old male with a past medical history significant for diabetes, hypertension, heart failure, and a history of CABG who presented and was admitted for episodes of weakness and dizziness and associated shortness of breath. On radiographic examination patient appears to have right lung pneumonia, with a suspected mass in the right middle lobe. After reviewing the CT scan from this admission with my attending neuro apparent air bronchograms visible within the consolidation which would be consistent with an infectious infiltrate. Patient has no concerning symptoms associated with a possible neoplasm, distant history of smoking, approximately three pack years. 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 Recommendations at this time to continue with antibiotic treatment for community-acquired pneumonia and follow up for repeat CT scan in 4-6 weeks to ensure resolution of the infiltrate versus possible indication for fine-needle aspiration versus bronchoscopy for biopsies. Recommendations Continue with antibiotic treatment for community-acquired pneumonia Follow up CT scan in 4-6 weeks to ensure resolution of infiltrates Patient at low risk for neoplasm however this can not be ruled out at this time Continue nebulizers Pulmonary to continue following PAST MEDICAL HX: see above PAST SURGICAL HX: noncontributory SOCIAL HISTORY: No tobacco, ETOH, or illicit drug use Coded Allergies: No Known Allergies (Verified Allergy, Unknown, 07/30/21) REVIEW OF SYSTEMS: 12 point ROS reviewed with patient. Pertinent positives mentioned above. Otherwise negative. PHYSICAL EXAM: GENERAL: alert, weak, awake oriented x 3 HEENT: EOMI, Sclera non icteric, moist mucosa NECK: Supple, no JVD, trachea midline LUNGS: Clear breath sounds bilaterally. No wheezes HEART: Regular rate and rhythm. Normal S1 and S2, without murmurs ABD: Abdomen soft, nontender. Bowel sounds present EXT: No clubbing cyanosis or edema NEURO: Alert and oriented to person, follows commands Vital Signs (last 8hr) Date Time Temp Pulse Resp B/P (MAP) Pulse Ox O2 Delivery O2 Flow Rate FiO2 03/30/25 04:00 97.7 60 18 110/60 99 Room Air LABS: Hematology Labs: Test 03/30/25 04:56 03/29/25 12:37 Range/Units White Blood Count 8.5 4.8-10.8 K/uL Red Blood Count 2.86 L 4.50-6.20 MIL/uL Hemoglobin 9.6 L 14.0-18.0 g/dL Hematocrit 26.7 L 42-54 % Mean Corpuscular Volume 93.4 79-99 fL Mean Corpuscular Hemoglobin 33.6 H 27.0-33.0 pg Mean Corpuscular Hemoglobin Concent 36.0 32.0-36.0 g/dL Red Cell Distribution Width 15.5 11.0-15.5 % Platelet Count 155 130-400 K/uL Mean Platelet Volume 8.3 7.5-10.5 fL Nucleated Red Blood Cells 0.0 0.0-0.19 % Immature Granulocyte % (Auto) 2.2 H 0-1 % Neutrophils (%) (Auto) 66.1 40.0-77.0 % Lymphocytes (%) (Auto) 19.2 L 21.0-51.0 % Monocytes (%) (Auto) 9.0 3.0-13.0 % Eosinophils (%) (Auto) 2.7 0.0-8.0 % Basophils (%) (Auto) 0.8 0.0-5.0 % Neutrophils # (Auto) 6.5 1.8-7.7 K/uL Lymphocytes # (Auto) 1.9 1.0-4.8 K/uL Monocytes # (Auto) 0.9 0.1-1.0 K/uL Eosinophils # (Auto) 0.27 0.00-0.70 K/uL Basophils # (Auto) 0.08 0.00-0.20 K/uL Absolute Immature Granulocyte (auto 0.22 0-1 K/uL Chemistry Labs: Test 03/30/25 04:56 03/29/25 20:43 03/29/25 12:37 Range/Units Sodium Level 136 136-145 mmol/L Potassium Level 4.4 3.5-5.1 mmol/L Chloride Level 102 101-111 mmol/L Carbon Dioxide Level 25 21-32 mmol/L Blood Urea Nitrogen 23 H 7-18 mg/dL Creatinine 1.7 H 0.5-1.3 mg/dL Glomerular Filtration Rate Calc 40 >90 mL/min Random Glucose 199 H 70-105 mg/dL Total Calcium 8.2 L 8.5-10.1 mg/dL Magnesium Level 1.60 L 1.80-2.40 mg/dL Whole Blood Glucose 197 H 70-110 MG/DL Troponin I High Sensitivity 14 4-75 ng/L DIAGNOSTICS / RADIOLOGY RESULTS: [ ] PLAN NEURO: Minimize central acting medications as possible. Maintain fall precautions, adequate lighting during the day PULMONARY: Supplemental 02 as needed. Maintain aspiration precautions at all times CARDIOVASCULAR: Follow hemodynamics. Vital signs per facility protocol GI & NUTRITION: Continue with nutritional support. Continue stool softeners and laxatives as needed. KIDNEYS & ELECTROLYTES: Strict monitoring of intake, output and overall fluid balance. Avoid nephrotoxic medications to the extent possible. Medications to be dosed according to renal function. Monitor electrolytes and replace as needed ENDOCRINE: Maintain blood glucose between 100-180 at all times. Hypoglycemia protocol in place INFECTIOUS DISEASE: Trend temperature, WBC and procalcitonin level Follow cultures, deescalate antibiotics as soon as possible. Panculture if new onset fever ONCOLOGY/HEMATOLOGY/COAGULATION: Monitor for s/s of bleeding Monitor hemoglobin, coagulation studies as needed SKIN: Pressure ulcer prevention per facility protocol Specialty mattress ORTHO/REHAB: Continue PT/OT Prophylaxis: Continue GI and DVT prophylaxis Code Status: Full Resuscitation Disposition: TBD Other: TONY NUNO Mar 30, 2025 09:21
[2025-03-30] MEDS: MAGNESIUM OXIDE 400 MG TABLET PO SCH (10:01)
[2025-03-30] MEDS: FAMOTIDINE 20MG TAB PO SCH (10:02)
[2025-03-30] MEDS: EZETIMIBE 10 MG TAB PO SCH (10:02)
--- NOTE | 2025-03-30 10:04 | NUR ---
MORNING MEDICATIONS BP MEDICATION HELD TO PREVENT HYPOTENSION, BP WAS 122/68
[2025-03-30] MEDS: VANCOMYCIN 750MG VIAL IVPB SCH (18:38)
--- NOTE | 2025-03-30 18:50 | NUR ---
cm note met with pt, and spoke to daughter via phone pt lives with spouse, independent with adls.ambualtion. uses cane , no provider or home services. dcplan is home at de. states no dc needs.
--- NOTE | 2025-03-30 20:08 | PN ---
SUBJECTIVE: The patient is feeling much better. He denies any chest pain or shortness of breath. OBJECTIVE: VITAL SIGNS: Blood pressure is 100/60, pulse is 60, respirations 14. LUNGS: Mostly decreased breath sounds, no wheeze or rhonchi. HEART: Regular rhythm. ABDOMEN: Nontender. LABORATORY DATA: Significant for hemoglobin 9.6, creatinine 1.7. ASSESSMENT AND PLAN: * Right middle lobe lateral segment mass. The patient is getting treated as for pneumonia, but the patient does not have other symptoms to suggest pneumonia and the patient is getting pulmonary consultation for further workup to rule out malignancy. The patient is on antibiotics and nebulizer treatments at this time. * Anemia is stable. * Diabetes mellitus and history of chronic renal insufficiency. The patient's metformin is going to keep on hold. The patient's creatinine improved to 1.7 at this time. TID: [id number] RECEIPT: [id number]
[2025-03-30] MEDS: ZOSYN 3.375GM +NS 50ML IVPB SCH (21:02)
[2025-03-31 03:50] VITALS: BP 115/65; PULSE 61; RESP 18; TEMP 97.6
[2025-03-31 08:30] VITALS: BP 109/66; PULSE 61; RESP 20; TEMP 97.4
--- NOTE | 2025-03-31 09:33 | PN ---
[facility] PROGRESS NOTE Date Patient Seen: Mar 31, 2025 Time of Visit: 09:30 Supervising Physician: Dr. Lynn PROBLEM LIST: Community-acquired pneumonia Right middle lobe consolidation, infiltrate versus neoplasm General body weakness Dizziness Diabetes mellitus type 2 Hypothyroidism Hypercholesteremia Hypertension CHF History of CABG AICD INTERVAL HISTORY: Patient evaluated at bedside today with daughter present, he is resting comfortably on room air, respirations are even and unlabored. Patient continues on Zosyn and vancomycin at this time per primary for community-acquired pneumonia. White count is 8.5 with a hemoglobin of 9.6. Renal function slightly improved with a creatinine down to 1.7 today. He continues on Lasix 20 b.i.d.. At this time patient is cleared from a pulmonary perspective to be discharged home and complete treatment on oral antibiotics and close follow up with PCP. Regarding the consolidation in the patient's right lung we recommend a 4-6 week follow up for CT scan to ensure resolution if it is secondary to a bacterial infiltrate. If there was no improvement in the mass patient will be recommended for fine-needle biopsy or possibly bronchoscopy depending on evaluation at that time. Plan Cleared to discharge home from a pulmonary standpoint Complete outpatient course of oral antibiotics Follow up in 4-[address] to ensure resolution of likely consolidation versus neoplasm REVIEW OF SYSTEMS: 12 point ROS reviewed with patient. Pertinent positives mentioned above. Otherwise negative. PHYSICAL EXAM: GENERAL: alert, weak, awake oriented x 3 HEENT: EOMI, Sclera non icteric, moist mucosa NECK: Supple, no JVD, trachea midline LUNGS: Clear breath sounds bilaterally. No wheezes HEART: Regular rate and rhythm. Normal S1 and S2, without murmurs ABD: Abdomen soft, nontender. Bowel sounds present EXT: No clubbing cyanosis or edema NEURO: Alert and oriented to person, follows commands Vital Signs (last 8hr) Date Time Temp Pulse Resp B/P (MAP) Pulse Ox O2 Delivery O2 Flow Rate FiO2 03/31/25 08:30 97.3 61 20 109/66 100 Room Air 03/31/25 03:50 97.5 61 18 115/65 99 Room Air LABS: Hematology Labs: Test 03/30/25 04:56 03/29/25 12:37 Range/Units White Blood Count 8.5 4.8-10.8 K/uL Red Blood Count 2.86 L 4.50-6.20 MIL/uL Hemoglobin 9.6 L 14.0-18.0 g/dL Hematocrit 26.7 L 42-54 % Mean Corpuscular Volume 93.4 79-99 fL Mean Corpuscular Hemoglobin 33.6 H 27.0-33.0 pg Mean Corpuscular Hemoglobin Concent 36.0 32.0-36.0 g/dL Red Cell Distribution Width 15.5 11.0-15.5 % Platelet Count 155 130-400 K/uL Mean Platelet Volume 8.3 7.5-10.5 fL Nucleated Red Blood Cells 0.0 0.0-0.19 % Immature Granulocyte % (Auto) 2.2 H 0-1 % Neutrophils (%) (Auto) 66.1 40.0-77.0 % Lymphocytes (%) (Auto) 19.2 L 21.0-51.0 % Monocytes (%) (Auto) 9.0 3.0-13.0 % Eosinophils (%) (Auto) 2.7 0.0-8.0 % Basophils (%) (Auto) 0.8 0.0-5.0 % Neutrophils # (Auto) 6.5 1.8-7.7 K/uL Lymphocytes # (Auto) 1.9 1.0-4.8 K/uL Monocytes # (Auto) 0.9 0.1-1.0 K/uL Eosinophils # (Auto) 0.27 0.00-0.70 K/uL Basophils # (Auto) 0.08 0.00-0.20 K/uL Absolute Immature Granulocyte (auto 0.22 0-1 K/uL Chemistry Labs: Test 03/30/25 04:56 03/29/25 20:43 03/29/25 12:37 Range/Units Sodium Level 136 136-145 mmol/L Potassium Level 4.4 3.5-5.1 mmol/L Chloride Level 102 101-111 mmol/L Carbon Dioxide Level 25 21-32 mmol/L Blood Urea Nitrogen 23 H 7-18 mg/dL Creatinine 1.7 H 0.5-1.3 mg/dL Glomerular Filtration Rate Calc 40 >90 mL/min Random Glucose 199 H 70-105 mg/dL Total Calcium 8.2 L 8.5-10.1 mg/dL Magnesium Level 1.60 L 1.80-2.40 mg/dL Whole Blood Glucose 197 H 70-110 MG/DL Troponin I High Sensitivity 14 4-75 ng/L DIAGNOSTICS / RADIOLOGY RESULTS: [ ] PLAN NEURO: Minimize central acting medications as possible. Maintain fall precautions, adequate lighting during the day PULMONARY: Supplemental 02 as needed. Maintain aspiration precautions at all times CARDIOVASCULAR: Follow hemodynamics. Vital signs per facility protocol GI & NUTRITION: Continue with nutritional support. Continue stool softeners and laxatives as needed. KIDNEYS & ELECTROLYTES: Strict monitoring of intake, output and overall fluid balance. Avoid nephrotoxic medications to the extent possible. Medications to be dosed according to renal function. Monitor electrolytes and replace as needed ENDOCRINE: Maintain blood glucose between 100-180 at all times. Hypoglycemia protocol in place INFECTIOUS DISEASE: Trend temperature, WBC and procalcitonin level Follow cultures, deescalate antibiotics as soon as possible. Panculture if new onset fever ONCOLOGY/HEMATOLOGY/COAGULATION: Monitor for s/s of bleeding Monitor hemoglobin, coagulation studies as needed SKIN: Pressure ulcer prevention per facility protocol Specialty mattress ORTHO/REHAB: Continue PT/OT Prophylaxis: Continue GI and DVT prophylaxis Code Status: Full Resuscitation Disposition: TBD Other: TONY NUNO PAC Mar 31, 2025 09:33
[2025-03-31 11:09] VITALS: O2SAT 100
[2025-03-31 11:46] VITALS: BP 107/61; PULSE 76; RESP 20; TEMP 97.8
--- NOTE | 2025-03-31 12:04 | NUR ---
DISCHARGED PT DISCHARGED HOME WITH FAMILY. PATIENT TO FOLLOW MD RECOMMENDATIONS AND TAKE MEDICATIONS PRESCRIBED. FOLLOW UP WITH PCP ON 04-01-25.
--- NOTE | 2025-03-31 23:16 | HP ---
ADMITTING HISTORY AND PHYSICAL CHIEF COMPLAINT: Weakness and dizziness. HISTORY OF PRESENT ILLNESS: He is an 84-year-old gentleman with generalized weakness. The patient has a history of diabetes mellitus, hypertension, coronary artery disease, and hypothyroidism. The patient takes multiple medications and the patient came with increasing weakness all over the body. The patient denies any fever, chills, vomiting, or diarrhea. PAST MEDICAL HISTORY: Significant for diabetes mellitus, hypertension, coronary artery disease, hypothyroidism. PAST SURGICAL HISTORY: CABG, pacer, and cholecystectomy and prostate surgery. MEDICATIONS: The patient takes tramadol 50 mg every 6 hours, metformin 1000 mg t.i.d., gabapentin, levothyroxine 75 mcg daily, atorvastatin 40 mg daily, glipizide 10 mg daily, spironolactone 25 mg, Plavix 75 mg, furosemide 20 mg, metoprolol 25 mg. ALLERGIES: None. SOCIAL HISTORY: The patient is a nonsmoker and no alcohol at this time. FAMILY HISTORY: Noncontributory. REVIEW OF SYSTEMS: HEENT: Negative. CARDIOVASCULAR: Denies chest pain. RESPIRATORY: Denies shortness of breath. GASTROINTESTINAL: Nausea. GENITOURINARY: Negative. MUSCULOSKELETAL: Joint pains. PHYSICAL EXAMINATION: GENERAL: The patient is awake, alert, oriented to person, place and time. HEENT: Pupil equal. Mucous membranes appear to be dry. NECK: Supple. LUNGS: Mostly decreased breath sounds. No wheeze, no rhonchi. HEART: Regular rate and rhythm. ABDOMEN: Soft and nontender. LABORATORY DATA: Significant for the white count is 9.8, hemoglobin is 10.5, platelets 178, sodium is 134, potassium 4.2, creatinine 2.1, sugar is 299. Troponin is 14. Glucose is trace. Chest x-ray shows right lower lobe spiculated mass. CT scan without contrast shows 4 cm area of right middle lobe lateral segment. ASSESSMENT AND PLAN: * Generalized weakness, right lung mass. The patient is going to be treated as likely pneumonia, but the patient has no symptoms associated with pneumonia and the patient is going to get vancomycin and Zosyn adjusted to renal dose 2.25 g every 8 hours. The patient is on nebulizer treatment. At this time, the patient is going to get pulmonary consultation. * Hypertension, stable. * Chronic renal insufficiency. The patient's metformin will be discontinued. The patient is going to get IV fluids also. The patient is going to get repeat labs in the morning. Condition discussed. Questions were answered. The patient's overall condition is stable at this time. TID: [id number] RECEIPT: [id number]
== END 2025-03-31 12:05 | disposition home or self-care (01) | DRG 682 ==
LOC: EDH 11:47 → EDHIP 15:25 → 3BH 18:15 → OBSVTOIN 03-31 09:00
PROVIDERS: ADMIT Internal Medicine; ATTEND Internal Medicine
DX: N17.9 Acute kidney failure, unspecified (principal); J18.9 Pneumonia, unspecified organism; I13.0 Hypertensive heart and chronic kidney disease with heart failure and stage 1 through stage 4 chronic kidney disease, or unspecified chronic kidney disease; I50.9 Heart failure, unspecified; E03.9 Hypothyroidism, unspecified; D64.9 Anemia, unspecified; E11.22 Type 2 diabetes mellitus with diabetic chronic kidney disease; E78.00 Pure hypercholesterolemia, unspecified; N18.9 Chronic kidney disease, unspecified; I25.10 Atherosclerotic heart disease of native coronary artery without angina pectoris; J98.4 Other disorders of lung; Z87.891 Personal history of nicotine dependence; Z95.1 Presence of aortocoronary bypass graft
CPT/HCPCS: 36415; 71045; 71250; 72040; 80048; 80202; 81001; 82948; 83735; 84484; 85025; 85027; 93005; 99285; G0378; J0696; J2543; J3475; J7030; J3370; J3375